=== PATIENT | male | born 1940 | race Caucasian/White ===

== ENCOUNTER 2022-05-30 18:50 | Inpatient (IN) ==
--- NOTE | 2022-05-30 20:17 | Emergency Department Note ---
Impression & Plan Closed hip fracture, Fall ADMIT ED Provider Note HPI: The patient is an 81-year-old gentleman who presents to the ED today with left hip pain after a fall. Patient has a history of stroke, he is currently on dual antiplatelet therapy, states that he was taking out the garbage earlier today and fell onto his left side. 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 On arrival here to the ED he is otherwise hemodynamically stable, he is able to answer simple questions with head nodding, he tells me that his left hip is the only focal area of pain. ROS: - Per HPI *Outpatient medications and allergy history reviewed. *Pertinent external medical records reviewed. PE: General: Alert HEENT: Normocephalic, trachea midline Eyes: Extraocular eye movement is intact, no scleral erythema Pulmonary: Clear to auscultation bilaterally, no wheezing Cardio: Regular rate and rhythm GI: Abdomen is soft to palpation : No suprapubic tenderness MSK: No evidence of trauma or malformation of the extremities, no edema, patient is not able to flex at the left hip secondary to pain Skin: No evidence of rash Neuro: Alert, no focal deficits Psychiatric: Cooperative engine monitor: (As interpreted by myself): - An order was placed for continuous cardiac monitoring - Patient was noted to be in sinus rhythm with a rate of 85 EKG: (As interpreted by myself): Rate: 81 Rhythm: Normal sinus rhythm Intervals: DE interval 206 ms, QRS 150 ms, QTc within normal range of [address] changes: No ST elevation Time: 2032 Interventions provided in ED: -IV morphine, IV fluid bolus Differential Diagnosis: Acute fracture, contusion, rib fractures, pneumothorax, hemothorax, intra-abdominal traumatic pathology, intracranial hem orrhage/traumatic injury, amongst other potential pathologies. Medical Decision Making: Patient presented to the emergency department after a fall at home today, his family later arrives to provide further history, they state he was taking out both the garbage and walking with the mail and he lost his balance and fell on his left hip. He had acute pain in his left hip. He had x-ray imaging done at a facility in [place] that showed a hip fracture and therefore they brought him to the ED for further assessment here. X-ray obtained and per my interpretation does show evidence of a left-sided femoral neck fracture. There is only mild displacement. Patient is unable to flex of the left hip. Patient does not have any other injuries, he does not have any other focal complaints of pain, he did not hit his head, therefore CT imaging was not obtained to evaluate for traumatic pathology within the head, thorax, or abdomen. His physical exam is reassuring in regards to these areas. He was given IV morphine for pain. Lab work otherwise is largely unremarkable, EKG shows normal sinus rhythm. I did discuss the patient's presentation with on-call orthopedics, Dr. Martinez, who is agreeable for consultation for orthopedics to provide recommendations regarding surgical care. Patient will be admitted to the hospitalist service given his medical history. [facility] hospitalist service was consulted and the patient was placed for admission in stable condition. Consultants: -Orthopedics, Dr. Martinez -Hospitalist, Dr. Coy Disposition discussion held by myself with: Patient, at the bedside, daughter at the Diagnosis: 1. Left-sided hip fracture status post mechanical fall 2. History of stroke, on dual antiplatelet therapy 3. Mechanical fall Disposition: Admission Wm Ortega DO Emergency Medicine Past Med/Surg History Social History Smoking Status: Never smoker Hx Alcohol Use: No Hx Substance Use: No Preferred Language: Slovenian Communication Ability: Impaired Public Information Coordinator Required: No Beliefs That Will Affect Care: None Current Living Situation: Spouse Other Information That Helps Us Care for You: No Feels Safe at Home: Yes Safety Concerns: Feels Safe At This Time Assistive Devices: Walker Allergies Allergies Allergy/AdvReac Type Severity Reaction Status Date / Time No Known Allergies Allergy Unverified 05/30/22 20:29 Home Meds Home Medications Medication Instructions Recorded Confirmed acetaminophen 325 mg tablet 650 mg PO QID PRN Pain 05/30/22 05/30/22 amlodipine 5 mg tablet 5 mg PO QAM 05/30/22 05/30/22 aspirin 81 mg tablet,delayed 81 mg PO QAM 05/30/22 05/30/22 release atorvastatin 80 mg tablet (Lipitor) 80 mg PO HS 05/30/22 05/30/22 budesonide-formoterol HFA 160 2 puff inhalation BID 05/30/22 05/30/22 mcg-4.5 mcg/actuation aerosol inhaler (Symbicort) clopidogrel 75 mg tablet 75 mg PO QAM 05/30/22 05/30/22 losartan 25 mg tablet 12.5 mg PO QAM 05/30/22 05/30/22 tamsulosin 0.4 mg capsule (Flomax) 0.4 mg PO HS 05/30/22 05/30/22 Results & Data (ED) Vital Signs Vital Signs - 24 hr 05/30/22 18:55 05/30/22 20:57 05/30/22 21:07 Temperature 36.8 C Temperature Source Temporal Artery Scan Pulse Rate 81 71 Pulse Rate [Finger] 79 Respiratory Rate 18 20 Respiratory Effort / Characteristics Non-Labored Spontaneous Respiratory Depth Normal Respiratory Pattern Regular Blood Pressure 131/78 Blood Pressure [Right Arm] 172/99 H Blood Pressure Mean 95 Blood Pressure Mean [Right Arm] 123 Pulse Oximetry 96 95 Oxygen Delivery Method Room Air Room Air Oxygen Flow Rate Sepsis Recent Fever Within 48 Hours No Sepsis New/Unexplained Change in Mental Status No Sepsis Action Taken by Nursing No Action Required Oxygen Flow Rate - Titration Pulse Oximetry Post Tiitration 05/30/22 21:27 05/30/22 22:30 Temperature Temperature Source Pulse Rate Pulse Rate [Finger] 82 Respiratory Rate 18 Respiratory Effort / Characteristics Respiratory Depth Respiratory Pattern Blood Pressure Blood Pressure [Right Arm] 172/85 H Blood Pressure Mean Blood Pressure Mean [Right Arm] 114 Pulse Oximetry 76 L 100 Oxygen Delivery Method Room Air Nasal Cannula Nasal Cannula Oxygen Flow Rate 0 4 Sepsis Recent Fever Within 48 Hours Sepsis New/Unexplained Change in Mental Status Sepsis Action Taken by Nursing Oxygen Flow Rate - Titration 4 Pulse Oximetry Post Tiitration 94 Laboratory Data 05/30/22 19:35 05/30/22 19:35 Lab Results 05/30/22 05/30/22 05/30/22 Range/Units 19:35 19:35 20:21 WBC 12.91 H (4.8-10.8) K/ul RBC 5.15 (4.70-6.10) M/uL Hgb 15.3 (14.0-18.0) g/dl Hct 46.7 (42.0-52.0) % MCV 90.7 (80.0-100.0) fL MCH 29.7 (25.0-34.0) pg MCHC 32.8 (32.0-36.0) g/dL RDW Std Deviation 48.9 H (36.4-46.3) fL RDW Coeff of Ejrald 14.6 H (11.5-14.5) % Plt Count 211 (130-400) K/uL MPV 9.8 (9.4-12.4) fL Immature Gran % (Auto) 0.6 % Neut % (Auto) 83.8 % Lymph % (Auto) 8.9 % Wirt % (Auto) 5.6 % Eos % (Auto) 0.9 % Baso % (Auto) 0.2 % Neut # (Auto) 10.82 H (1.40-6.50) K/uL Lymph # (Auto) 1.15 L (1.2-3.4) K/uL Wirt # (Auto) 0.72 H (0.11-0.59) K/uL Eos # (Auto) 0.12 (0-0.50) K/uL Baso # (Auto) 0.02 (0-0.2) K/uL Immature Gran # (Auto) 0.08 (0.01-0.20) K/uL PT (9.0-12.0) Seconds INR (0.9-1.1) Sodium 141 (136-145) mmol/L Potassium 3.8 (3.5-5.1) mmol/L Chloride 104 (98-107) mmol/L Carbon Dioxide 31 (21-32) mmol/L Anion Gap 6 (3-11) BUN 28 H (6-23) mg/dl Creatinine 1.00 (0.6-1.4) mg/dl Est Cr Clr Drug Dosing Not Reportable Est GFR ( Amer) 80.3 ml/min Est GFR (Non-Af Amer) 69.3 ml/min BUN/Creatinine Ratio 28.0 H (10-20) Glucose 154 H (70-99(Fasting)) mg/dl Calcium 8.8 (8.5-10.1) mg/dl Total Bilirubin 0.4 (0.2-1.0) mg/dl AST 22 (13-39) U/L ALT 14 (7-52) U/L Alkaline Phosphatase 53 (34-104) U/L Total Protein 7.7 (6.0-8.3) gm/dl Albumin 4.6 (3.4-5.0) gm/dl Globulin 3.1 (2.5-4.0) gm/dl Albumin/Globulin Ratio 1.5 (0.9-2) SARS-CoV-2, RNA, NAAT (NEGATIVE) Blood Type A Positive Antibody Screen NEGATIVE 05/30/22 05/30/22 Range/Units 20:24 20:35 WBC (4.8-10.8) K/ul RBC (4.70-6.10) M/uL Hgb (14.0-18.0) g/dl Hct (42.0-52.0) % MCV (80.0-100.0) fL MCH (25.0-34.0) pg MCHC (32.0-36.0) g/dL RDW Std Deviation (36.4-46.3) fL RDW Coeff of Jerald (11.5-14.5) % Plt Count (130-400) K/uL MPV (9.4-12.4) fL Immature Gran % (Auto) % Neut % (Auto) % Lymph % (Auto) % Wirt % (Auto) % Eos % (Auto) % Baso % (Auto) % Neut # (Auto) (1.40-6.50) K/uL Lymph # (Auto) (1.2-3.4) K/uL Wirt # (Auto) (0.11-0.59) K/uL Eos # (Auto) (0-0.50) K/uL Baso # (Auto) (0-0.2) K/uL Immature Gran # (Auto) (0.01-0.20) K/uL PT 10.8 (9.0-12.0) Seconds INR 1.0 (0.9-1.1) Sodium (136-145) mmol/L Potassium (3.5-5.1) mmol/L Chloride (98-107) mmol/L Carbon Dioxide (21-32) mmol/L Anion Gap (3-11) BUN (6-23) mg/dl Creatinine (0.6-1.4) mg/dl Est Cr Clr Drug Dosing Est GFR ( Amer) ml/min Est GFR (Non-Af Amer) ml/min BUN/Creatinine Ratio (10-20) Glucose (70-99(Fasting)) mg/dl Calcium (8.5-10.1) mg/dl Total Bilirubin (0.2-1.0) mg/dl AST (13-39) U/L ALT (7-52) U/L Alkaline Phosphatase (34-104) U/L Total Protein (6.0-8.3) gm/dl Albumin (3.4-5.0) gm/dl Globulin (2.5-4.0) gm/dl Albumin/Globulin Ratio (0.9-2) SARS-CoV-2, RNA, NAAT NEGATIVE (NEGATIVE) Blood Type Antibody Screen Administered Medications Morphine Sulfate (Morphine Sulfate 2 Mg/Ml Carp) 2 mg IV Q3H PRN PRN Reason: Moderate Pain (Scale 4, 5, 6) Stop: 06/13/22 22:47 Last Admin: 05/31/22 00:29 Dose: 2 mg Documented By: SONIA Discontinued Medications Sodium Chloride (Nss) 500 mls @ 999 mls/hr IV .Q31M ONE Stop: 05/30/22 21:26 Last Infusion: 05/30/22 22:03 Dose: 0 mls/hr Documented By: Admin: 05/30/22 21:13 Dose: 999 mls/hr Documented By: DEBBI Morphine Sulfate (Morphine Sulfate 4 Mg/Ml 1 Ml Carp\Vial) 4 mg IV NOW STA Stop: 05/30/22 20:37 Last Admin: 05/30/22 20:44 Dose: 4 mg Documented By: DEBBI Morphine Sulfate (Morphine Sulfate 4 Mg/Ml 1 Ml Carp\Vial) 4 mg IV NOW STA Stop: 05/30/22 21:10 Last Admin: 05/30/22 21:13 Dose: 4 mg Documented By: DEBBI Ondansetron HCl (Ondansetron Inj 2 Mg/Ml 2 Ml Vial) 4 mg IV NOW STA Stop: 05/30/22 20:37 Last Admin: 05/30/22 20:44 Dose: 4 mg Documented By: DEBBI Discharge Plan Visit Data Chief Complaint: Fall Stated Complaint: BROKEN HIP ED Provider: Wm Ortega Discharge Problem: Closed hip fracture, Fall Patient Disposition: Admitted As Inpatient Discharge Instructions Interventions: ED Discharge Assessment Last Done: 05/30/22 23:30
[2022-05-30] MEDS ORDERED: MoRPHine SULFATE 4 MG/ML 1 ML CARP\\VIAL IV STA ×2 (20:36→21:09)
[2022-05-30] MEDS ORDERED: ONDANSETRON INJ 2 MG/ML 2 ML VIAL IV STA (20:36)
[2022-05-30 20:38] LABS: Basophils # (auto) 0.02 K/uL (0-0.2); Basophils % (auto) 0.2 %; Eosinophils # (auto) 0.12 K/uL (0-0.50); Eosinophils % (auto) 0.9 %; Hematocrit (blood only) 46.7 % (42.0-52.0); Hemoglobin 15.3 g/dl (14.0-18.0); Immature Granulocytes # (auto) 0.08 K/uL (0.01-0.20); Immature Granulocytes % (auto) 0.6 %; Lymphocytes # (auto) 1.15 K/uL (1.2-3.4); Lymphocytes % (auto) 8.9 %; Mean Corpuscular Hemoglobin 29.7 pg (25.0-34.0); Mean Corpuscular Hgb Conc 32.8 g/dL (32.0-36.0); Mean Corpuscular Volume 90.7 fL (80.0-100.0); Mean Platelet Volume 9.8 fL (9.4-12.4); Monocytes # (auto) 0.72 K/uL (0.11-0.59); Monocytes % (auto) 5.6 %; Neutrophils # (auto) 10.82 K/uL (1.40-6.50); Neutrophils % (auto) 83.8 %; Platelet Count 211 K/uL (130-400); RDW Coefficient of Variation 14.6 % (11.5-14.5); RDW Standard Deviation 48.9 fL (36.4-46.3); Red Blood Count 5.15 M/uL (4.70-6.10); White Blood Count 12.91 K/ul (4.8-10.8)
[2022-05-30 20:49] LABS: Alanine Aminotransferase 14 U/L (7-52); Albumin Globulin Ratio 1.5 (0.9-2); Albumin Level 4.6 gm/dl (3.4-5.0); Alkaline Phosphatase 53 U/L (34-104); Anion Gap 6 (3-11); Aspartate Aminotransferase 22 U/L (13-39); Bilirubin,Total 0.4 mg/dl (0.2-1.0); Blood Urea Nitrogen 28 mg/dl (6-23); Calcium 8.8 mg/dl (8.5-10.1); Carbon Dioxide 31 mmol/L (21-32); Chloride 104 mmol/L (98-107); Est GFR (African American) 80.3 ml/min; Est GFR (Non-African American) 69.3 ml/min; Globulin 3.1 gm/dl (2.5-4.0); Glucose 154 mg/dl (70-99(Fasting)); Potassium 3.8 mmol/L (3.5-5.1); Sodium 141 mmol/L (136-145); Total Protein 7.7 gm/dl (6.0-8.3)
[2022-05-30] MEDS ORDERED: SODIUM CHLORIDE 0.9% 500 ML IV ONE (20:56)
[2022-05-30 21:12] LABS: Prothrombin Time 10.8 Seconds (9.0-12.0)
--- NOTE | 2022-05-30 22:46 | History & Physical Report ---
Date of Service May 30, 2022 Assessment & Plan (1) History of CVA (cerebrovascular accident): (2) Hypertension: (3) Hyperlipidemia: (4) COPD (chronic obstructive pulmonary disease): (5) Urinary tract infection: (6) History of balanitis: (7) Anal stricture: (8) Closed fracture of left hip: (9) Fall: (10) H/O carotid endarterectomy: (11) BPH w urinary obs/LUTS: (12) History of cardiac arrest: Plan Closed fracture of left hip status post mechanical fall- N.p.o. after midnight Geriatric hip fracture order set Acetaminophen 650 mg p.o. every 6 hours as needed for mild pain or temperature Morphine sulfate 2 mg IV every 4 hours as needed for moderate pain. Of note, patient had hypoxia with a 4 mg morphine dose while in the ED Dilaudid 0.25 mg IV every 4 hours as needed for severe pain NSS + KCl 20mEq at 80 mils per hour Consult orthopedic surgery. Family request [facility] orthopedic surgery Cardiac arrest status post bilateral CEA surgery in 2015/hypertension- Check an echocardiogram Attempt to get records from [place] From family history, it sounds the patient developed some type of postobstructive process associated with CEA, and then developed a cardiopulmonary arrest Hold aspirin, clopidogrel Continue amlodipine and losartan with hold parameters Hyperglycemia- No history of diabetes as a diagnosis Glucose was 154 on admission laboratories Checking hemoglobin A1c Placed on Accu-Cheks with NovoLog SSI COPD- Continue Symbicort Hyperlipidemia- Continue atorvastatin BPH with LUTS- Continue tamsulosin History of UTI/balanitis- Patient was admitted to the emergency department at [facility] for 3 days in February 2022. His reports that he sties developed a rash on his penis, and she reports combination of 2 creams on this on a daily basis We will attempt to get the records from [place], and patient's will bring in the creams so we can see if he still needs them History of Present Illness Chief Complaint: The patient developed acute left hip pain after a fall when he was outside picking up the mail. Primary Care Provider: Heath Delgadillo DO The patient is a 81-year-old male with a past medical history including CVA x2, cardiac arrest post bilateral CEA in 2016, hypertension, hyperlipidemia, COPD, BPH with LUTS, urinary tract infection, balanitis and anal stricture. 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 Emergency department work-up included x-ray of pelvis and hips, which showed a closed left hip fracture. Patient developed a pulse ox of 79% on room air after receiving 4 mg of morphine IV, and improved oxygenation on 2 L nasal cannula to 94%. Significant laboratories: WBC 12.91, hemoglobin 15.3, hematocrit 46.7, glucose 154. Patient was COVID-19 negative Allergies Allergy/AdvReac Type Severity Reaction Status Date / Time No Known Allergies Allergy Unverified 05/30/22 20:29 Home Medications Medication Instructions Recorded Confirmed Type acetaminophen 325 mg tablet 650 mg PO QID PRN Pain 05/30/22 05/30/22 History amlodipine 5 mg tablet 5 mg PO QAM 05/30/22 05/30/22 History aspirin 81 mg tablet,delayed 81 mg PO QAM 05/30/22 05/30/22 History release atorvastatin 80 mg tablet (Lipitor) 80 mg PO HS 05/30/22 05/30/22 History budesonide-formoterol HFA 160 2 puff inhalation BID 05/30/22 05/30/22 History mcg-4.5 mcg/actuation aerosol inhaler (Symbicort) clopidogrel 75 mg tablet 75 mg PO QAM 05/30/22 05/30/22 History losartan 25 mg tablet 12.5 mg PO QAM 05/30/22 05/30/22 History tamsulosin 0.4 mg capsule (Flomax) 0.4 mg PO HS 05/30/22 05/30/22 History Past Med/Surg History Medical History (Updated 05/31/22 @ 04:06 by Segun Torres MD) Anal stricture Balanitis BPH w urinary obs/LUTS Carotid artery disease COPD (chronic obstructive pulmonary disease) History of cardiac arrest History of CVA (cerebrovascular accident) Hyperlipidemia Hypertension Urinary tract infection Surgical History (Updated 05/31/22 @ 03:56 by Segun Torres MD) H/O carotid endarterectomy Social History Smoking Status: Never smoker Hx Alcohol Use: No Hx Substance Use: No Preferred Language: Thai Communication Ability: Impaired 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 Beliefs That Will Affect Care: None Current Living Situation: Spouse Other Information That Helps Us Care for You: No Feels Safe at Home: Yes Safety Concerns: Feels Safe At This Time Assistive Devices: Walker Review of Systems Review of Systems: The patient denies chest pain, palpitations, shortness of breath, dyspnea on exertion, cough, lower extremity swelling, sore throat, fevers, chills, sweats, weight change, fatigue, nausea, vomiting, diarrhea , constipation, abdominal pain, pelvic pain, blood in urine or stool, dysuria, urinary frequency or urgency, lightheadedness, dizziness, headache, loss of consciousness, rash, abnormal bruising or bleedi ng, focal or generalized weakness, numbness or tingling in arms, generalized arthralgias or myalgias, back or neck pain, or night sweats. The review of systems is otherwise negative other than for that already noted above, and at least 10 systems have been reviewed. Physical Exam Physical Exam: The patient is awake, alert and oriented 3, well developed and well nourished, normocephalic and atraumatic, lying in bed and in no acute distress. HEENT--PERRL, EOMI, mucous membranes and oropharynx dry. Neck--supple. No JVD. No bruits. Thyroid normal, trachea midline, no adenopathy. Heart--normal S1 and S2. No murmurs, rubs or gallops. Lungs--clear bilaterally, no respiratory distress, no accessory muscle use. Abdomen--normal bowel sounds and soft. Nontender. Nondistended, no hernias or masses, no organomegaly. Extremities--no cyanosis or clubbing. No edema. There are good distal pulses b/l. Dermatologic--normal skin turgor, normal color, no abnormal lymph nodes, no rash. Neurologic--cranial nerves II through XII grossly intact. Rheumatologic--limited exam due to left hip fracture Psychiatric--normal affect. Results & Data Results & Data ([facility]) Vital Signs (Past 12 Hours) Vital Signs Temp Pulse Pulse Resp BP BP Pulse Ox 05/30/22 21:27 76 L 05/30/22 21:07 71 05/30/22 20:57 79 20 172/99 H 95 05/30/22 18:55 36.8 C 81 18 131/78 96 O2 Del Method O2 Flow Rate 05/30/22 21:27 Room Air, Nasal Cannula 0 05/30/22 21:07 05/30/22 20:57 Room Air 05/30/22 18:55 Room Air Laboratory Results Laboratory Results WBC 12.91 K/ul (4.8-10.8) H 05/30/22 19:35 RBC 5.15 M/uL (4.70-6.10) 05/30/22 19:35 Hgb 15.3 g/dl (14.0-18.0) 05/30/22 19:35 Hct 46.7 % (42.0-52.0) 05/30/22 19:35 MCV 90.7 fL (80.0-100.0) 05/30/22 19:35 MCH 29.7 pg (25.0-34.0) 05/30/22 19:35 MCHC 32.8 g/dL (32.0-36.0) 05/30/22 19:35 RDW Std Deviation 48.9 fL (36.4-46.3) H 05/30/22 19:35 RDW Coeff of Jerald 14.6 % (11.5-14.5) H 05/30/22 19:35 Plt Count 211 K/uL (130-400) 05/30/22 19:35 MPV 9.8 fL (9.4-12.4) 05/30/22 19:35 Immature Gran % (Auto) 0.6 % 05/30/22 19:35 Neut % (Auto) 83.8 % 05/30/22 19:35 Lymph % (Auto) 8.9 % 05/30/22 19:35 [place] % (Auto) 5.6 % 05/30/22 19:35 Eos % (Auto) 0.9 % 05/30/22 19:35 Baso % (Auto) 0.2 % 05/30/22 19:35 Neut # (Auto) 10.82 K/uL (1.40-6.50) H 05/30/22 19:35 Lymph # (Auto) 1.15 K/uL (1.2-3.4) L 05/30/22 19:35 [place] # (Auto) 0.72 K/uL (0.11-0.59) H 05/30/22 19:35 Eos # (Auto) 0.12 K/uL (0-0.50) 05/30/22 19:35 Baso # (Auto) 0.02 K/uL (0-0.2) 05/30/22 19:35 Immature Gran # (Auto) 0.08 K/uL (0.01-0.20) 05/30/22 19:35 PT 10.8 Seconds (9.0-12.0) 05/30/22 20:24 INR 1.0 (0.9-1.1) 05/30/22 20:24 Sodium 141 mmol/L (136-145) 05/30/22 19:35 Potassium 3.8 mmol/L (3.5-5.1) 05/30/22 19:35 Chloride 104 mmol/L (98-107) 05/30/22 19:35 Carbon Dioxide 31 mmol/L (21-32) 05/30/22 19:35 Anion Gap 6 (3-11) 05/30/22 19:35 BUN 28 mg/dl (6-23) H 05/30/22 19:35 Creatinine 1.00 mg/dl (0.6-1.4) 05/30/22 19:35 Est Cr Clr Drug Dosing Not Reportable 05/30/22 19:35 Est GFR ( Amer) 80.3 ml/min 05/30/22 19:35 Est GFR (Non-Af Amer) 69.3 ml/min 05/30/22 19:35 BUN/Creatinine Ratio 28.0 (10-20) H 05/30/22 19:35 Glucose 154 mg/dl (70-99(Fasting)) H 05/30/22 19:35 Calcium 8.8 mg/dl (8.5-10.1) 05/30/22 19:35 Total Bilirubin 0.4 mg/dl (0.2-1.0) 05/30/22 19:35 AST 22 U/L (13-39) 05/30/22 19:35 ALT 14 U/L (7-52) 05/30/22 19:35 Alkaline Phosphatase 53 U/L (34-104) 05/30/22 19:35 Total Protein 7.7 gm/dl (6.0-8.3) 05/30/22 19:35 Albumin 4.6 gm/dl (3.4-5.0) 05/30/22 19:35 Globulin 3.1 gm/dl (2.5-4.0) 05/30/22 19:35 Albumin/Globulin Ratio 1.5 (0.9-2) 05/30/22 19:35 SARS-CoV-2, RNA, NAAT NEGATIVE (NEGATIVE) 05/30/22 20:35 Blood Type A Positive 05/30/22 20:21 Antibody Screen NEGATIVE 05/30/22 20:21 Code Status & VTE Plan Code Status Full code VTE Prophylaxis Plan VTE Prophylaxis will be ordered: Yes PG Care Time/CCT Total # of Minutes Spent Total Time Spent with Patient: Total time spent is greater than 50% in coordination of care (as documented) at patient's floor/unit and/or counseling patient: Coding Level of Care Code 57499 INT INP/OBS CARE 375MIN Diagnoses History of CVA (cerebrovascular accident) Z86.73 Hypertension I10 Hyperlipidemia E78.5 COPD (chronic obstructive pulmonary disease) J44.9 Urinary tract infection N39.0 History of balanitis Z87.438 Anal stricture K62.4 Closed fracture of left hip S72.002A Fall W19.XXXA H/O carotid endarterectomy Z98.890 BPH w urinary obs/LUTS N40.1; N13.8 History of cardiac arrest Z86.74
[2022-05-31] MEDS ORDERED: bisacodyL 10 MG SUPP PR PRN (00:01)
[2022-05-31] MEDS ORDERED: GLUCAGON FOR INJ 1 MG VIAL SQ PRN (00:01)
[2022-05-31] MEDS ORDERED: ACETAMINOPHEN 325 MG TAB PO PRN (00:01)
[2022-05-31] MEDS ORDERED: CARBOHYDRATES FOR HYPOGLYCEMIA PO PRN (00:01)
[2022-05-31] MEDS ORDERED: DEXTROSE 50% 50 ML SYRINGE IV PRN (00:01)
[2022-05-31] MEDS ORDERED: GLUCOSE 40% GEL 15 GM TUBE PO PRN (00:01)
[2022-05-31] MEDS ORDERED: ONDANSETRON INJ 2 MG/ML 2 ML VIAL IV PRN ×2 (00:01→11:31)
[2022-05-31] MEDS ORDERED: GLUCOSE 10 TAB/TUBE PO PRN (00:01)
[2022-05-31] MEDS ORDERED: NALOXONE HCL 0.4 MG/1 ML VIAL/CARP IV PRN (00:01)
[2022-05-31] MEDS ORDERED: MAGNESIUM HYDROXIDE SUSP 30 ML UDC PO PRN (00:01)
[2022-05-31] MEDS: MoRPHine SULFATE 2 MG/ML CARP IV PRN ×4 (00:29→21:30)
[2022-05-31] MEDS: NSS + 20MEQ KCL 20 MEQ/1,000 ML BAG IV SCH ×2 (01:46→19:00)
[2022-05-31] MEDS ORDERED: TRANEXAMIC ACID / 0.7% NACL 1,000 MG/100 ML BAG IV SCH ×2 (06:00→06:30)
--- NOTE | 2022-05-31 07:05 | XRay Report ---
XR hip MARY 2v w pelvis CLINICAL HISTORY: Left hip pain following fall. COMPARISON STUDY: No previous studies for comparison. FINDINGS: Sacroiliac joints and symphysis pubis are intact. Note is made of an acute transcervical le ft femoral neck fracture. Fracture is essentially nondisplaced. No additional fractures are identifie d. There is moderate bilateral hip osteoarthritis. IMPRESSION: 1. Acute transcervical left femoral neck fracture. Fracture essentially nondisplaced. 2. Moderate bilateral hip osteoarthritis. ACT 112: Negative or not required by law. Electronically signed by: Joaquín Manley M.D. 05/31/2022 7:03 AM
[2022-05-31 07:08] LABS: Basophils # (auto) 0.04 K/uL (0-0.2); Basophils % (auto) 0.5 %; Eosinophils # (auto) 0.16 K/uL (0-0.50); Eosinophils % (auto) 1.8 %; Hematocrit (blood only) 46.1 % (42.0-52.0); Hemoglobin 14.7 g/dl (14.0-18.0); Immature Granulocytes # (auto) 0.04 K/uL (0.01-0.20); Immature Granulocytes % (auto) 0.5 %; Lymphocytes # (auto) 1.29 K/uL (1.2-3.4); Lymphocytes % (auto) 14.8 %; Mean Corpuscular Hemoglobin 29.2 pg (25.0-34.0); Mean Corpuscular Hgb Conc 31.9 g/dL (32.0-36.0); Mean Corpuscular Volume 91.5 fL (80.0-100.0); Mean Platelet Volume 9.6 fL (9.4-12.4); Monocytes # (auto) 0.55 K/uL (0.11-0.59); Monocytes % (auto) 6.3 %; Neutrophils # (auto) 6.61 K/uL (1.40-6.50); Neutrophils % (auto) 76.1 %; Platelet Count 193 K/uL (130-400); RDW Coefficient of Variation 14.6 % (11.5-14.5); RDW Standard Deviation 49.1 fL (36.4-46.3); Red Blood Count 5.04 M/uL (4.70-6.10); White Blood Count 8.69 K/ul (4.8-10.8)
[2022-05-31 07:36] LABS: Partial Thromboplastin Ratio 1.1; Partial Thromboplastin Time 31.5 Seconds (21.0-31.0); Prothrombin Time 10.9 Seconds (9.0-12.0)
--- NOTE | 2022-05-31 07:44 | Hospitalist Progress Note ---
Date of Service May 31, 2022 Assessment & Plan (1) Closed fracture of left hip: Plan: Presents after a mechanical fall, has focal pain, Acetaminophen 650 mg p.o. every 6 hours as needed for mild pain or temperature Morphine sulfate 2 mg IV every 4 hours as needed for moderate pain. Of note, patient had hypoxia with a 4 mg morphine dose while in the ED Dilaudid 0.25 mg IV every 4 hours as needed for severe pain NSS + KCl 20mEq at 80 mils per hour Consult orthopedic surgery. Family request [facility] orthopedic surgery patient taken to the OR on 05/31/2022 with Yadira Foster (2) History of cardiac arrest: Plan: Cardiac arrest status post bilateral CEA surgery in 2016/hypertension- echocardiogram is without changes intact EF no regional wall motion abnormalities no significant valvular heart disease Hold aspirin, clopidogrel Continue amlodipine and losartan with hold parameters (3) COPD (chronic obstructive pulmonary disease): Plan: Chronic and stable continue Symbicort (4) History of CVA (cerebrovascular accident): Plan: Previous on 2 antiplatelet therapy these will be held. Risk reduction hypertension control and dyslipidemic treatment (5) Urinary tract infection: Plan: History of UTI/balanitis- Patient was admitted to the emergency department at [facility] for 3 days in February 2022. His reports that he since developed a rash on his penis, and she reports combination of 2 creams on this on a daily basis patient says this is in good control and almost resolved (6) BPH w urinary obs/LUTS: Admission and Anticipated Discharge Date Admission Date: May 30, 2022 Subjective pt was seen pre operatively, he has no anginal or HF symptoms, and support the fact that he will have surgical repair 05/31/22 Physical Exam Physical Exam: cardiac exam is regular, no jvd lungs are clear abdomen is soft and non tender left leg with intact distal pulses and sensation Results & Data Results & Data ([facility]) Vital Signs (Past 12 Hours) Vital Signs Temp Pulse Pulse Resp BP Pulse Ox O2 Del Method 05/31/22 03:39 97.9 F 82 16 148/79 H 96 Nasal Cannula 05/31/22 01:05 80 05/31/22 00:48 Nasal Cannula 05/31/22 00:04 97.9 F 85 16 164/84 H 97 Nasal Cannula 05/30/22 23:30 Nasal Cannula 03/02/23 22:30 82 18 172/85 H 100 Nasal Cannula 05/30/22 21:27 76 L Room Air, Nasal Cannula 05/30/22 21:07 71 05/30/22 20:57 79 20 172/99 H 95 Room Air O2 Flow Rate 05/31/22 03:39 2 05/31/22 01:05 05/31/22 00:48 2 05/31/22 00:04 2 05/30/22 23:30 4 05/30/22 22:30 4 05/30/22 21:27 0 05/30/22 21:07 05/30/22 20:57 Laboratory Results Reviewed CBC Reviewed chemistry panel Reviewed coagulation studies Reviewed hemoglobin A1c Preoperative echocardiogram shows normal LV function and size PG Care Time/CCT Total # of Minutes Spent Total Time Spent with Patient: Total time spent is greater than 50% in coordination of care (as documented) at patient's floor/unit and/or counseling patient: Coding Level of Care Code 90691 SUB INP/OBS CARE 2/35MIN Diagnoses Closed fracture of left hip S72.002A History of cardiac arrest Z86.74 COPD (chronic obstructive pulmonary disease) J44.9 History of CVA (cerebrovascular accident) Z86.73 Urinary tract infection N39.0 BPH w urinary obs/LUTS N40.1; N13.8
[2022-05-31 07:52] LABS: Albumin Globulin Ratio 1.4 (0.9-2); Albumin Level 4.1 gm/dl (3.4-5.0); BUN Creatinine Ratio 27.2 (10-20); Bilirubin,Total 0.5 mg/dl (0.2-1.0); Calcium 8.6 mg/dl (8.5-10.1); Creatinine Clr Calc Pharmacy 81.6 ml/min; Est GFR (African American) 95.3 ml/min; Est GFR (Non-African American) 82.2 ml/min; Globulin 2.9 gm/dl (2.5-4.0); Magnesium 2.2 mg/dl (1.7-2.4)
[2022-05-31] MEDS: INSULIN ASPART PER UNIT SC SCH ×4 (08:10→21:22)
[2022-05-31] MEDS: FLUTICASONE/VILANTEROL 200/25MCG 14 PUFFS/INHALER INH SCH (08:27)
[2022-05-31] MEDS ORDERED: amLODIPine BESYLATE 5 MG TAB PO SCH (09:00)
[2022-05-31] MEDS ORDERED: LOSARTAN POTASSIUM 25 MG TAB PO SCH (09:00)
--- NOTE | 2022-05-31 09:21 | Orthopedic Consultation ---
Date of Service May 31, 2022 Assessment & Plan (1) Closed fracture of left hip: NPO. We will plan on left hip hemiarthroplasty today with Dr. Foster. Procedure explained to the patient including risks, benefits, alternatives to surgery. Consent obtained. I also called his and discussed this with her and she wants to proceed with hip surgery as well. History of Present Illness Reason for Consultation: . Requesting Physician: . Attending Physician: Anmol Yuen MD . Elie is a 81 year old patient admitted last night with a left hip fracture. He has a h/o cva, aphasia, cardiac arrest, copd, among other problems listed in his H & P. He states he fell while walking yesterday and injured his left hip. Denies any pain prior to fall. No other complaints. Allergies Allergy/AdvReac Type Severity Reaction Status Date / Time No Known Allergies Allergy Unverified 05/30/22 20:29 Home Medications Medication Instructions Recorded Confirmed Type acetaminophen 325 mg tablet 650 mg PO QID PRN Pain 05/30/22 05/30/22 History amlodipine 5 mg tablet 5 mg PO QAM 05/30/22 05/30/22 History aspirin 81 mg tablet,delayed 81 mg PO QAM 05/30/22 05/30/22 History release atorvastatin 80 mg tablet (Lipitor) 80 mg PO HS 05/30/22 05/30/22 History budesonide-formoterol HFA 160 2 puff inhalation BID 05/30/22 05/30/22 History mcg-4.5 mcg/actuation aerosol inhaler (Symbicort) clopidogrel 75 mg tablet 75 mg PO QAM 05/30/22 05/30/22 History losartan 25 mg tablet 12.5 mg PO QAM 05/30/22 05/30/22 History tamsulosin 0.4 mg capsule (Flomax) 0.4 mg PO HS 05/30/22 05/30/22 History Past Med/Surg History Medical History Anal stricture Balanitis BPH w urinary obs/LUTS Carotid artery disease COPD (chronic obstructive pulmonary disease) History of cardiac arrest History of CVA (cerebrovascular accident) Hyperlipidemia Hypertension Urinary tract infection Surgical History H/O carotid endarterectomy Social History Smoking Status: Never smoker Hx Alcohol Use: No Hx Substance Use: No Preferred Language: Egyptian Communication Ability: Impaired Cro Required: No Beliefs That Will Affect Care: None Current Living Situation: Spouse Other Information That Helps Us Care for You: No Feels Safe at Home: Yes Safety Concerns: Feels Safe At This Time Assistive Devices: Walker Review of Systems All systems reviewed & are unremarkable except as noted in HPI & below. Physical Exam . Alert, NAD. Left leg: slightly externally rotated. He can dorsiflex and plantar flex. NVI. Hip pain with minimal movement. Results & Data Results & Data Laboratory Results . Diagnostic Findings . xrays shows a displaced left femoral neck fracture PG Care Time/CCT Total # of Minutes Spent Total Time Spent with Patient: Total time spent is greater than 50% in coordination of care (as documented) at patient's floor/unit and/or counseling patient: Coding Level of Care Code 66748 IN/OBS CONSULT LVL 5,80M Diagnoses Closed fracture of left hip S72.002A
[2022-05-31 09:57] LABS: Estimated Average Glucose 146 mg/dl; Hemoglobin A1C 6.7 % (4.5-5.6)
--- NOTE | 2022-05-31 10:09 | Anesthesiology Consultation ---
Date of Service May 31, 2022 Assessment & Plan (1) Encounter for pre-operative examination: Chart Review Chart Review: Acceptable Risk for Surgery and Patient NOT seen in Pre Admission Testing echo completed. ok to proceed. see report for full details Consults Requested none History Surgery Operation Date: 05/31/22 08:00 Proposed Procedures p Left Hip Hemiarthroplasty - Richard Foster MD Height/Weight Height: 5 ft 10 in Weight: 99.3 kg Allergies Allergy/AdvReac Type Severity Reaction Status Date / Time No Known Allergies Allergy Unverified 05/30/22 20:29 Medications Home Medications Medication Instructions Recorded Confirmed Last Taken acetaminophen 325 mg tablet 650 mg PO QID PRN Pain 05/30/22 05/30/22 05/30/22 amlodipine 5 mg tablet 5 mg PO QAM 05/30/22 05/30/22 05/30/22 aspirin 81 mg tablet,delayed 81 mg PO QAM 05/30/22 05/30/22 05/30/22 release atorvastatin 80 mg tablet (Lipitor) 80 mg PO HS 05/30/22 05/30/22 05/29/22 budesonide-formoterol HFA 160 2 puff inhalation BID 05/30/22 05/30/22 05/30/22 mcg-4.5 mcg/actuation aerosol inhaler (Symbicort) clopidogrel 75 mg tablet 75 mg PO QAM 05/30/22 05/30/22 05/30/22 losartan 25 mg tablet 12.5 mg PO QAM 05/30/22 05/30/22 05/30/22 tamsulosin 0.4 mg capsule (Flomax) 0.4 mg PO HS 05/30/22 05/30/22 05/29/22 Active Medications Generic Name Dose Route Start Last Admin Trade Name Freq PRN Reason Stop Dose Admin Fluticasone/Vilanterol 1 puffs 05/31/22 09:00 05/31/22 08:27 Fluticasone/Vilanterol 200/25mcg 14 Puffs/Inhaler INH 06/30/22 08:59 1 puffs DAILY RUBEN Administration Potassium Chloride/Sodium Chloride 20 meq in 1,000 mls @ 60 mls/hr 05/31/22 00:30 05/31/22 01:46 Normal Saline W/20 Meq Kcl IV 06/30/22 00:00 60 mls/hr .[id number] RUBEN Administration Insulin Aspart 0 units 05/31/22 07:30 05/31/22 08:10 Insulin Aspart Per Unit SC 06/30/22 07:29 Not Given ACHS RUBEN Morphine Sulfate 2 mg 05/30/22 22:48 05/31/22 09:21 Morphine Sulfate 2 Mg/Ml Carp IV 06/13/22 22:47 2 mg Q3H PRN Administration Moderate Pain (Scale 4, 5, 6) NPO Date Last Intake of Fluids: 05/30/22 Last Intake of Fluids Comment: NPO since midnight Date Last Intake of Solids: 05/30/22 Past Medical History Medical History Anal stricture Balanitis BPH w urinary obs/LUTS Carotid artery disease COPD (chronic obstructive pulmonary disease) History of cardiac arrest History of CVA (cerebrovascular accident) Hyperlipidemia Hypertension Urinary tract infection Past Surgical History Surgical History H/O carotid endarterectomy Social History Smoking Status: Never smoker Hx Alcohol Use: No Hx Substance Use: No Physical Exam Vital Signs Last Vital Signs Temp 36.6 C 05/31/22 10:51 Pulse 79 05/31/22 10:51 Resp 20 05/31/22 10:51 BP 143/75 H 05/31/22 10:51 Pulse Ox 94 05/31/22 10:51 O2 Del Method Nasal Cannula 05/31/22 10:51 O2 Flow Rate 2 05/31/22 10:51 Testing Laboratory Results 05/31/22 06:22 05/31/22 06:22 PT 10.9 Seconds (9.0-12.0) 05/31/22 06:22 INR 1.0 (0.9-1.1) 05/31/22 06:22 APTT 31.5 Seconds (21.0-31.0) H 05/31/22 06:22 Hemoglobin A1c 6.7 % (4.5-5.6) H 05/31/22 06:22 Blood Type A Positive 05/30/22 20:21 Antibody Screen NEGATIVE 05/30/22 20:21 05/31/22 05/31/22 07:40 04:37 POC Glucose 110 H 147 H Electrocardiogram Date: 05/30/22 Findings: + NSR @ (81) RBBB
[2022-05-31] MEDS ORDERED: ONDANSETRON INJ 2 MG/ML 2 ML VIAL ONE (11:02)
[2022-05-31] MEDS ORDERED: PROPOFOL IV EMULSION 10 MG/ML 20 ML VIAL IV ONE (11:02)
[2022-05-31] MEDS ORDERED: LIDOCAINE 2% MPF LOCAL 5 ML VIAL INFIL ONE (11:02)
[2022-05-31] MEDS ORDERED: ROCURONIUM BROMIDE 10 MG/ML 5 ML VIAL IV ONE (11:02)
[2022-05-31] MEDS ORDERED: fentaNYL citrate 100 MCG/2 ML VIAL ONE (11:03)
[2022-05-31] MEDS ORDERED: ceFAZolin 2000MG 2,000 MG/15 ML SYR IV ONE (11:15)
--- NOTE | 2022-05-31 11:16 | XCELERA ---
[id number] \\[id number]
[2022-05-31] MEDS ORDERED: TRANEXAMIC ACID / 0.7% NACL 1,000 MG/100 ML BAG IV STA (11:21)
[2022-05-31] MEDS ORDERED: TRANEXAMIC ACID / 0.7% NACL 1000MG/100ML BAG IV ONE (11:23)
[2022-05-31] MEDS ORDERED: BUPIVACAINE/EPINEPHRINE 0.25% 1:200,000 30 ML VIAL ONE (11:26)
[2022-05-31] MEDS ORDERED: ePHEDrine sulfate 50 MG/ML AMP IV PRN (11:31)
[2022-05-31] MEDS ORDERED: ATROPINE SULFATE 0.1 MG/ML 10ML SYR IV PRN (11:31)
--- NOTE | 2022-05-31 11:43 | Electrocardiogram Report ---
Test Reason : Blood Pressure : / mmHG Vent. Rate : 081 BPM Atrial Rate : 081 BPM P-R Int : 206 ms QRS Dur : 150 ms QT Int : 410 ms P-R-T Axes : 071 033 043 degrees QTc Int : 476 ms Normal sinus rhythm Right bundle branch block Abnormal ECG No previous ECGs available Confirmed by Robert Guo ([id number]) on 05/31/2022 11:42:57 AM Referred By: REFERRED SELF Confirmed By:Robert Guo
[2022-05-31] MEDS ORDERED: ESMOLOL HCL INJ 10 MG/ML 10ML VIAL IV ONE (12:45)
[2022-05-31] MEDS ORDERED: SUGAMMADEX SODIUM 200 MG/2 ML VIAL IV ONE (13:49)
--- NOTE | 2022-05-31 14:05 | Operative Report ---
PG Post Operative Report Pre & Post Diagnosis Operation Date: 05/31/22 08:00 Pre-Op Diagnosis: Left displaced femoral neck fracture. Post-Op Diagnosis: Left displaced femoral neck fracture. I identified the patient and participated in the time-out.: Yes Procedure Operation Date: 05/31/22 08:00 Actual Procedures p Left Hip cemented hemiarthroplasty(Left) - Richard Foster MD Surgeon Richard Foster MD Lumber Racker Gonzalo Flannery PA-C Estimated Blood Loss 150 Findings Consistent with Post-Op Diagnosis Specimens Left femoral head sent for pathology Anesthesia Type General Complications none Disposition Accompanied Patient To Recovery: No Indications Patient is an 81-year-old gent with multiple medical comorbidities who sustained a fall. He had cute onset of pain was unable to ambulate. Brought to emergency room where x-rays were displaced femoral neck fracture. Patient was medically optimized by the hospitalist service and indicated for surgical management. No pre-existing hip problems. No pre-existing hip pain. Description of Procedure Operative implants consisted of: 1. Harjeet size 11 LD fracture fracture stem with a 9 mm centralizer. 2. +7/28 mm metal articular ball. 3. 53 mm bipolar shell and liner. 4. Small cement restrictor. The patient was taken the operating, identified, placed on the operating table supine position protectors were properly padded. IV antibiotics tried by anesthesia team. A general anesthetic was implemented. Patient also got 1 g of tranexamic acid. He was then placed in the right lateral decubitus position. An axillary roll was placed. Stulberg hip positioner was used for positioning. Left hip was then scrubbed with Hibiclens, prepped with ChloraPrep and draped in usual sterile fashion. A posterolateral approach to the left hip was then performed through a curvilinear incision centered over the greater trochanter. Sharp dissection was carried through subcutaneous tissue down to the IT band gluteal fascia the IT band gluteal fascia incised longitudinally in line with skin incision. The underlying greater bursa was excised. The piriformis and external rotators were tagged and taken off the posterior aspect hip joint capsule. Great care was taken throughout the procedure protect the sciatic nerve at all times. A posterior capsulotomy was then performed leaving a 2 flaps for later repair. Hip was internally rotated. A femoral neck osteotomy cut was made just at the base of the fracture site which was about 10 mm at most above the lesser trochanter. Femoral neck and femoral head were then removed. I sized the acetabular to a size 53. Attention drawn the femur. The proximal femur was entered with a cookie cutter followed by canal finder and lateralizing reamer. Then broached beginning size 10 and progressing up to 12. The 12 was quite tight. We elect to place a size 11 implant. We trialed the hip and the +7 articular ball seem to recreate leg lengths and tension appropriately. It was fully stable. We elect to place these implants. All trial implants were removed. A cement restrictor was placed. Double batch Palacos G cement was mixed. The cement was then injected in the canal. A size 11 LDF X fracture stem was then placed. A +7 metal articular ball with a 53 bipolar shell and liner were placed after the cement hardened. The hip was located once again found to be stable. Attention drawn toward closing. The wound was irrigated scope sounds of pulsatile lavage solution. We did inject locally with 50 cc of half percent Marcaine with epinephrine. The poste rior capsule was then repaired with #2 Tycron suture. The external rotators were then reattached to the posterior active aspect of the hip abductors with #2 Tycron suture. The IT band gluteal fascia then closed with #1 PDS suture running fashion for subcutaneous tissues then closed with 2 layers the deep layer #1 Vicryl suture and subcutaneous tissue with 2-0 Dexon suture in a buried interrupted fashion. Skin was closed with skin andrew. Leg was then cleaned and dried a sterile dressing with Xeroform, 4 x 4's, ABD pad, foam tape was applied. The patient then brought out of general anesthesia and transferred to the recovery room in stable condition. The patient tolerated the procedure well and there were no complications. Gonzalo Flannery, my physician resident care assistant, was present for the entire procedure. His assistance was essential and required for appropriate patient positioning, prepping and draping, surgical exposure, performing the technical details of the operation, placement the implants, closure of the wound, and placement of the sterile bandage. I attest to the content of the Intraoperative Record and any orders documented therein. Any exceptions are noted below.
[2022-05-31] MEDS ORDERED: COUGH DROP (SUGAR FREE) LOZ 24 LOZ/1 BOX BUCCAL PRN (14:24)
[2022-05-31] MEDS: fentaNYL citrate 100 MCG/2 ML VIAL IV PRN ×3 (14:38→15:50)
--- NOTE | 2022-05-31 15:24 | XRay Report ---
XR hip LT min 2V CLINICAL HISTORY: Post-Operative implant position TECHNIQUE: 2 views of the left hip were obtained. Comparison: Comparison is made to bilateral hip radiograph 05/30/2022 FINDINGS: Patient is status post total hip arthroplasty with expected postsurgical changes including soft tissu e swelling and subcutaneous emphysema. IMPRESSION: Expected postoperative appearance status post placement of total hip arthroplasty. ACT 112: Negative or not required by law. Electronically signed by: Jayy Bella M.D. 05/31/2022 3:23 PM
--- NOTE | 2022-05-31 15:38 | Anesthesiology Progress Note ---
Date of Service May 31, 2022 Anesthesia Post Procedure Vital Signs Vital Signs: Temp Pulse Pulse Pulse Resp BP BP 05/31/22 14:40 103 H 12 173/106 H 05/31/22 14:30 102 H 20 189/97 H 05/31/22 15:29 100 H 12 174/85 H 05/31/22 15:20 99 H 12 173/97 H 05/31/22 15:10 101 H 12 169/85 H 05/31/22 15:00 98 H 12 180/97 H 05/31/22 14:50 97 H 20 172/101 H 05/31/22 14:20 102 H 20 186/102 H 05/31/22 14:14 36.2 C L 88 16 128/83 05/31/22 08:30 72 05/31/22 10:51 36.6 C 79 20 143/75 H 05/31/22 08:35 36.7 C 74 18 126/77 05/31/22 03:39 36.6 C 82 16 05/31/22 01:05 80 05/31/22 00:48 05/31/22 00:04 36.6 C 85 16 05/30/22 23:30 05/30/22 22:30 82 18 05/30/22 21:27 05/30/22 21:07 71 05/30/22 20:57 79 20 05/30/22 18:55 36.8 C 81 18 131/78 BP Pulse Ox O2 Del Method O2 Flow Rate 05/31/22 14:40 99 Oxymask 2 05/31/22 14:30 100 Oxymask 3 05/31/22 15:29 99 Nasal Cannula 2 05/31/22 15:20 97 Nasal Cannula 2 05/31/22 15:10 92 Nasal Cannula 2 05/31/22 15:00 96 Nasal Cannula 2 05/31/22 14:50 100 Oxymask 2 05/31/22 14:20 100 Oxymask 6 05/31/22 14:14 100 Oxymask 6 05/31/22 08:30 05/31/22 10:51 143/75 H 94 Nasal Cannula 2 05/31/22 08:35 99 Nasal Cannula 1 05/31/22 03:39 148/79 H 96 Nasal Cannula 2 05/31/22 01:05 05/31/22 00:48 Nasal Cannula 2 05/31/22 00:04 164/84 H 97 Nasal Cannula 2 05/30/22 23:30 Nasal Cannula 4 05/30/22 22:30 172/85 H 100 Nasal Cannula 4 05/30/22 21:27 76 L Room Air, Nasal Cannula 0 05/30/22 21:07 05/30/22 20:57 172/99 H 95 Room Air 05/30/22 18:55 96 Room Air Pain Intensity Left Hip: Pain Intensity: 8 Transfer of Care Handoff Completed per policy Notes Mental Status: alert / awake / arousable and participated in evaluation Patient Amnestic to Procedure: Yes Nausea / Vomiting: adequately controlled Pain: adequately controlled Airway Patency, RR, SpO2: stable & adequate BP & HR: stable & adequate Hydration State: stable & adequate Anesthetic Complications: no major complications apparent and Pt Satisfied with anesthetic care
[2022-05-31] MEDS: SODIUM CHLORIDE 0.9% 1000ML 1,000 ML IV SCH (17:16)
[2022-05-31] MEDS ORDERED: PROMETHAZINE HCL 25 MG in SODIUM CHLORIDE 0.9% 50 ML IV STA (18:03)
[2022-05-31] MEDS ORDERED: PROMETHAZINE HCL 12.5 MG in SODIUM CHLORIDE 0.9% 50 ML IV PRN (18:17)
[2022-05-31] MEDS: ceFAZolin 2000MG 2,000 MG/15 ML SYR IV SCH (21:31)
[2022-05-31] MEDS: ATORVASTATIN 40 MG TAB PO SCH (22:48)
[2022-05-31] MEDS: TAMSULOSIN HCL 0.4 MG CAP PO SCH (22:48)
[2022-05-31] MEDS: DOCUSATE SODIUM/SENNA 50/8.6MG TAB PO SCH (22:48)
[2022-05-31] MEDS: HYDROmorphone INJ 0.5 MG/0.5 ML SYR IV PRN (23:48)
[2022-06-01] MEDS: ceFAZolin 2000MG 2,000 MG/15 ML SYR IV SCH (03:11)
[2022-06-01] MEDS: MoRPHine SULFATE 2 MG/ML CARP IV PRN ×2 (03:36→21:07)
[2022-06-01 06:32] LABS: Basophils # (auto) 0.02 K/uL (0-0.2); Basophils % (auto) 0.1 %; Eosinophils # (auto) 0.05 K/uL (0-0.50); Eosinophils % (auto) 0.4 %; Hematocrit (blood only) 43.6 % (42.0-52.0); Hemoglobin 14.1 g/dl (14.0-18.0); Immature Granulocytes # (auto) 0.06 K/uL (0.01-0.20); Immature Granulocytes % (auto) 0.4 %; Lymphocytes # (auto) 0.85 K/uL (1.2-3.4); Lymphocytes % (auto) 6.3 %; Mean Corpuscular Hemoglobin 29.4 pg (25.0-34.0); Mean Corpuscular Hgb Conc 32.3 g/dL (32.0-36.0); Mean Platelet Volume 9.6 fL (9.4-12.4); Monocytes # (auto) 0.92 K/uL (0.11-0.59); Monocytes % (auto) 6.8 %; Neutrophils # (auto) 11.69 K/uL (1.40-6.50); Platelet Count 165 K/uL (130-400); RDW Coefficient of Variation 14.5 % (11.5-14.5); RDW Standard Deviation 48.1 fL (36.4-46.3); Red Blood Count 4.79 M/uL (4.70-6.10); White Blood Count 13.59 K/ul (4.8-10.8)
[2022-06-01 07:37] LABS: Partial Thromboplastin Ratio 1.1; Partial Thromboplastin Time 31.1 Seconds (21.0-31.0)
--- NOTE | 2022-06-01 07:40 | Electrocardiogram Report ---
Test Reason : Blood Pressure : / mmHG Vent. Rate : 114 BPM Atrial Rate : 114 BPM P-R Int : 186 ms QRS Dur : 148 ms QT Int : 352 ms P-R-T Axes : 064 -38 028 degrees QTc Int : 485 ms Sinus tachycardia with occasional Premature ventricular complexes Left axis deviation Right bundle branch block Possible Old Inferior infarct Abnormal ECG When compared with ECG of 30-MAY-2022 20:33, HR has increased 33 bpm Premature ventricular complexes are now Present QRS axis Shifted left Borderline Criteria for Inferior infarct is now Present Confirmed by Eric Jones ([id number]) on 06/01/2022 7:40:06 AM Referred By: REFERRED SELF Confirmed By:Eric Jones
[2022-06-01] MEDS: SODIUM CHLORIDE 0.9% 1000ML 1,000 ML IV SCH (08:07)
--- NOTE | 2022-06-01 08:09 | Progress Notes ---
DATE OF SERVICE: 06/01/2022 SUBJECTIVE: An 81-year-old gentleman with multiple medical comorbidities, now postoperative day 1 fr om a left cemented bipolar hip arthroplasty for fracture. He is doing pretty well this morning. Rep orts some hip soreness, but that is it. No other real complaints. He does have some aphasia, so com munication is a little difficult. OBJECTIVE: VITAL SIGNS: Temperature is 36.8. Vital signs are fairly stable. He is a bit tachycardic at 118. EXTREMITIES: Examination of the left hip and leg reveals the dressing to be clean, dry, and intact. Leg lengths are equal. He can dorsiflex and plantarflex his foot appropriately. He is neurological ly intact. LABORATORY DATA: Hemoglobin 14.1. Hematocrit 43.6. White cell count 13.59. Electrolytes are pendi ng. ASSESSMENT: An 81-year-old gentleman with multiple medical comorbidities, now postoperative day 1 fr om a left cemented bipolar hip arthroplasty for fracture. Orthopedically, he is doing well. His edgar n is controlled. His hip is located. He is neurologically intact/stable. PLAN: 1. DVT prophylaxis including thigh-high TEDs and SCDs and he can start back on his Plavix today 24 h ours postop surgery. He can also start back on his baby aspirin once a day. 2. PT, OT, and weightbear as tolerated. Left total hip protocol. 3. Pain control, doing okay with current pain regimen. 4. Medical management as per the medicine service. 5. Disposition: He would likely need a rehab stay. He will be orthopedically okay to be discharged to rehab any time medically stable. I need to see him back in 2 to 3 weeks out from surgery date. Any orthopedic questions can be directed to me at [phone]. Job ID: [id number]
[2022-06-01] MEDS ORDERED: METOPROLOL TARTRATE 25 MG TAB PO SCH (09:00)
[2022-06-01] MEDS: FLUTICASONE/VILANTEROL 200/25MCG 14 PUFFS/INHALER INH SCH (09:16)
[2022-06-01] MEDS: ASPIRIN 81 MG ECTAB PO SCH (09:16)
[2022-06-01] MEDS: INSULIN ASPART PER UNIT SC SCH ×4 (09:16→20:53)
[2022-06-01] MEDS: CLOPIDOGREL BISULFATE 75 MG TAB PO SCH (09:16)
[2022-06-01] MEDS: NSS + 20MEQ KCL 20 MEQ/1,000 ML BAG IV SCH (09:17)
[2022-06-01 09:57] LABS: Albumin Globulin Ratio 1.2 (0.9-2); Albumin Level 3.9 gm/dl (3.4-5.0); BUN Creatinine Ratio 19.8 (10-20); Bilirubin,Total 0.5 mg/dl (0.2-1.0); Calcium 8.6 mg/dl (8.5-10.1); Est GFR (Non-African American) 77.7 ml/min; Globulin 3.2 gm/dl (2.5-4.0); Magnesium 2.1 mg/dl (1.7-2.4); Potassium 4.2 mmol/L (3.5-5.1); Total Protein 7.1 gm/dl (6.0-8.3)
[2022-06-01] MEDS: HYDROmorphone INJ 0.5 MG/0.5 ML SYR IV PRN (10:56)
[2022-06-01] MEDS ORDERED: METOPROLOL TARTRATE 25 MG TAB PO ONE (16:03)
--- NOTE | 2022-06-01 16:19 | Hospitalist Progress Note ---
Date of Service June 01, 2022 Assessment & Plan (1) Closed fracture of left hip: Plan: Presents after a mechanical fall, has focal pain, OR on 05/31/[address] Foster performing a left hip hemiarthroplasty Postoperative pain control is good Patient denies significant anemia (2) History of cardiac arrest: Plan: Cardiac arrest status post bilateral CEA surgery in 2016/hypertension- echocardiogram is without changes intact EF no regional wall motion abnormalities no significant valvular heart disease Hold aspirin, clopidogrel Patient with significant sinus tachycardia postoperatively. Losartan is held amlodipine will be held in the face of increasing metoprolol dosing Metoprolol utilized to control rate (3) COPD (chronic obstructive pulmonary disease): Plan: Chronic and stable continue Symbicort (4) History of CVA (cerebrovascular accident): Plan: Previous on 2 antiplatelet therapy these will be held. Risk reduction hypertension control and dyslipidemic treatment (5) Urinary tract infection: Plan: History of UTI/balanitis-much improved from previous description Patient was admitted to the emergency department at [facility] for 3 days in February 2022. His reports that he since developed a rash on his penis, and she reports combination of 2 creams on this on a daily basis patient says this is in good control and almost resolved (6) BPH w urinary obs/LUTS: Admission and Anticipated Discharge Date Admission Date: May 30, 2022 Subjective Patient was seen postoperatively the last evening and again today he has sinus tachycardia he is pleasantly confused his confusion is more so than initially thought but his feels this is about his usual state. His is at the bedside and updated. EKG was checked to confirm sinus tachycardia. He does not have significant postoperative anemia. Physical Exam Physical Exam: Cardiac exam is tachycardic but regular lungs are clear and unlabored abdomen NABS soft his extremity has good distal capillary refill on the left with good pulses Results & Data Results & Data ([facility]) Vital Signs (Past 12 Hours) Vital Signs Temp Pulse Resp BP Pulse Ox O2 Del Method O2 Flow Rate 06/01/22 12:42 97.7 F 141 H 19 138/78 93 Room Air 06/01/22 08:41 98.6 F 110 H 18 148/86 H 96 Nasal Cannula 2 Laboratory Results Reviewed CBC Reviewed PRP Reviewed magnesium Interpreted EKG at the bedside showing sinus tachycardia PG Care Time/CCT Total # of Minutes Spent Total Time Spent with Patient: Total time spent is greater than 50% in coordination of care (as documented) at patient's floor/unit and/or counseling patient: Coding Level of Care Code 21883 SUB INP/OBS CARE 2/35MIN Diagnoses Closed fracture of left hip S72.002A History of cardiac arrest Z86.74 COPD (chronic obstructive pulmonary disease) J44.9 History of CVA (cerebrovascular accident) Z86.73 Urinary tract infection N39.0 BPH w urinary obs/LUTS N40.1; N13.8
[2022-06-01] MEDS: METOPROLOL TARTRATE 25 MG TAB PO SCH (20:57)
[2022-06-01] MEDS: ATORVASTATIN 40 MG TAB PO SCH (20:57)
[2022-06-01] MEDS: TAMSULOSIN HCL 0.4 MG CAP PO SCH (20:58)
[2022-06-01] MEDS: DOCUSATE SODIUM/SENNA 50/8.6MG TAB PO SCH (20:58)
[2022-06-02] MEDS: HYDROmorphone INJ 0.5 MG/0.5 ML SYR IV PRN (05:56)
[2022-06-02 07:03] LABS: Albumin Globulin Ratio 1.1 (0.9-2); Albumin Level 3.4 gm/dl (3.4-5.0); BUN Creatinine Ratio 19.8 (10-20); Bilirubin,Total 0.7 mg/dl (0.2-1.0); Calcium 8.6 mg/dl (8.5-10.1); Est GFR (African American) 95.3 ml/min; Est GFR (Non-African American) 82.2 ml/min; Globulin 3.1 gm/dl (2.5-4.0); Magnesium 2.1 mg/dl (1.7-2.4); Potassium 3.8 mmol/L (3.5-5.1); Total Protein 6.5 gm/dl (6.0-8.3)
[2022-06-02 07:15] LABS: Partial Thromboplastin Time 28.2 Seconds (21.0-31.0)
[2022-06-02 08:01] LABS: Basophils # (auto) 0.02 K/uL (0-0.2); Basophils % (auto) 0.2 %; Eosinophils # (auto) 0.09 K/uL (0-0.50); Eosinophils % (auto) 0.8 %; Hematocrit (blood only) 35.2 % (42.0-52.0); Hemoglobin 11.5 g/dl (14.0-18.0); Immature Granulocytes # (auto) 0.06 K/uL (0.01-0.20); Immature Granulocytes % (auto) 0.5 %; Lymphocytes # (auto) 1.13 K/uL (1.2-3.4); Lymphocytes % (auto) 9.7 %; Mean Corpuscular Hemoglobin 29.4 pg (25.0-34.0); Mean Corpuscular Hgb Conc 32.7 g/dL (32.0-36.0); Mean Platelet Volume 10.2 fL (9.4-12.4); Monocytes # (auto) 0.94 K/uL (0.11-0.59); Monocytes % (auto) 8.1 %; Neutrophils % (auto) 80.7 %; Platelet Count 149 K/uL (130-400); RDW Coefficient of Variation 14.7 % (11.5-14.5); RDW Standard Deviation 48.9 fL (36.4-46.3); Red Blood Count 3.91 M/uL (4.70-6.10); White Blood Count 11.64 K/ul (4.8-10.8)
[2022-06-02] MEDS: INSULIN ASPART PER UNIT SC SCH ×4 (08:17→20:55)
[2022-06-02] MEDS: FLUTICASONE/VILANTEROL 200/25MCG 14 PUFFS/INHALER INH SCH (08:18)
[2022-06-02] MEDS: CLOPIDOGREL BISULFATE 75 MG TAB PO SCH (08:19)
[2022-06-02] MEDS: METOPROLOL TARTRATE 25 MG TAB PO SCH ×2 (08:19→20:14)
[2022-06-02] MEDS: ASPIRIN 81 MG ECTAB PO SCH (08:19)
--- NOTE | 2022-06-02 08:22 | Progress Notes ---
DATE OF SERVICE: 06/02/2022 SUBJECTIVE: An 81-year-old gentleman with multiple medical comorbidities, postoperative day 2 from a left cemented bipolar hip arthroplasty. He is doing well. No real complaints today. Reports a lit tle bit of hip soreness and that is it. No new complaints. OBJECTIVE: VITAL SIGNS: Temperature 37.0. Vital signs are stable. PHYSICAL EXAMINATION: GENERAL: Reveals a pleasant, elderly male. He is sitting up in bed and eating breakfast. Looks com fortable. EXTREMITIES: Examination of the left hip reveals leg lengths to be equal. Dressing is clean, dry an d intact. He can dorsiflex and plantarflex his foot appropriately. He is neurologically intact. LABORATORY DATA: Hemoglobin is 11.5. Hematocrit is 35.2. Electrolytes are stable. ASSESSMENT: An 81-year-old gentleman, postoperative day 2 from a left cemented bipolar hip arthropla sty, doing reasonably well. Hip is located. He is neurologically intact. Pain seems to be controll ed. Hemoglobin has dropped a bit, but not anything too unusual. PLAN: 1. DVT prophylaxis including thigh-high TEDs, SCDs, and he can go back on his Plavix and aspirin. 2. PT/OT, weightbear as tolerated. Left total hip protocol. 3. Pain control, doing okay with current pain regimen. 4. Medical management as per the medicine service. 5. Disposition: He is orthopedically okay for discharge any time medically stable. He can weight b ear as tolerated. Needs to obey hip precautions. I need to see him back in 2-3 weeks out from surge ry date. Any orthopedic questions can be directed to me at . Job ID: [id number]
[2022-06-02 08:27] LABS: Thyroid Stimulating Hormone 1.607 uIu/ml (0.300-4.500)
[2022-06-02 08:29] LABS: T4 Free Thyroxine 1.06 ng/dl (0.61-1.60)
--- NOTE | 2022-06-02 14:03 | Hospitalist Progress Note ---
Date of Service June 02, 2022 Assessment & Plan (1) Closed fracture of left hip: Plan: Presents after a mechanical fall, has focal pain, OR on 05/31/[address] Foster performing a left hip hemiarthroplasty Postoperative pain control is good Patient does not have significant postop anemia but does have mild acute blood loss anemia with a hemoglobin of 11.5 seen and have a suction because of tachycardia. Patient has had sinus tachycardia postoperatively initially felt to be secondary to the events that occurred with anesthesia etc. But with persistent tachycardia and escalation of beta-stefano will perform CT angiography to rule out pulmonary embolism as cause patient keshav on dual antiplatelet therapy at this point time. 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 Losartan is held amlodipine will be held in the face of increasing metoprolol dosing Metoprolol utilized to control rate (3) COPD (chronic obstructive pulmonary disease): Plan: Chronic and stable continue Symbicort (4) History of CVA (cerebrovascular accident): Plan: Previous on 2 antiplatelet therapy these will be held. Risk reduction hypertension control and dyslipidemic treatment (5) Urinary tract infection: Plan: History of UTI/balanitis-much improved from previous description Patient was admitted to the emergency department at [facility] for 3 days in February 2022. His reports that he since developed a rash on his penis, and she reports combination of 2 creams on this on a daily basis patient says this is in good control and almost resolved (6) BPH w urinary obs/LUTS: Plan: Patient is currently with some minor urinary retention but no significant symptoms Admission and Anticipated Discharge Date Admission Date: May 30, 2022 Subjective Patient is pleasantly confused his confusion is more so than initially thought but his feels this is about his usual state. Tachycardia has improved with beta-blockers although CTA will be performed to rule out pulm embolism as the nidus for his tachycardia. EKG was checked to confirm sinus tachycardia. He does not have significant postoperative anemia. Physical Exam Physical Exam: Cardiac exam lessening cardiac response with beta-stefano heart rates in the 90s to 100 range remains sinus rhythm on monitor I did review his monitor strips with the monitor techs on 06/02/2022 lungs are clear and unlabored abdomen NABS soft his extremity has good distal capillary refill on the left with good pulses Results & Data Results & Data ([facility]) Vital Signs (Past 12 Hours) Vital Signs Temp Pulse Pulse Pulse Resp BP Pulse Ox 06/02/22 11:48 97.7 F 91 H 20 129/77 95 06/02/22 07:53 98.6 F 98 H 20 124/74 92 06/02/22 07:45 06/02/22 06:00 125 H 06/02/22 03:21 99.7 F H 107 H 18 102/68 91 O2 Del Method 06/02/22 11:48 Room Air 06/02/22 07:53 Room Air 06/02/22 07:45 Room Air 06/02/22 06:00 06/02/22 03:21 Room Air Laboratory Results Reviewed CBC Reviewed chemistry Reviewed nutritional parameters albumin 14 Reviewed thyroid panel normal PG Care Time/CCT Total # of Minutes Spent Total Time Spent with Patient: Total time spent is greater than 50% in coordination of care (as documented) at patient's floor/unit and/or counseling patient: Coding Level of Care Code 61467 SUB INP/OBS CARE 3/50MIN Diagnoses Closed fracture of left hip S72.002A History of cardiac arrest Z86.74 COPD (chronic obstructive pulmonary disease) J44.9 History of CVA (cerebrovascular accident) Z86.73 Urinary tract infection N39.0 BPH w urinary obs/LUTS N40.1; N13.8
[2022-06-02] MEDS ORDERED: OPTIRAY 320 500ml IV ONE (14:31)
--- NOTE | 2022-06-02 14:34 | Electrocardiogram Report ---
Test Reason : Blood Pressure : / mmHG Vent. Rate : 118 BPM Atrial Rate : 118 BPM P-R Int : 190 ms QRS Dur : 128 ms QT Int : 354 ms P-R-T Axes : 080 007 022 degrees QTc Int : 496 ms Poor data quality, interpretation may be adversely affected Sinus tachycardia Right bundle branch block Old Inferior infarct (cited on or before 31-MAY-2022) Abnormal ECG When compared with ECG of 31-MAY-2022 17:58, Premature ventricular complexes are no longer Present Confirmed by Eric Jones ([id number]) on 06/02/2022 2:33:35 PM Referred By: REFERRED SELF Confirmed By:Eric Jones
--- NOTE | 2022-06-02 17:09 | CT Scan Report ---
CT angio chest PE protocol CT DOSE: 762.10 mGy.cm HISTORY: 81 years-old Male with PE, tachycardia post op unexplained. Acute shortness of breath with tachycardia TECHNIQUE: Multiple CTA images of the chest were obtained after the intravenous administration of 109 ml Optiray. Coronal and sagittal MIPS were obtained from the axial data set and were submitted for review. All measurements were obtained according to NASCET criteria. A dose lowering technique was u tilized adhering to the principles of ALARA. COMPARISON: None. FINDINGS: CTA: Mild cardiomegaly without pericardial effusion. Extensive coronary artery calcifications. Atheroscler osis of the aorta without aneurysm. No pulmonary emboli identified. CT CHEST: No thyroid nodule. No lymphadenopathy. No pneumothorax, pleural effusion, airspace consolidation or o vert pulmonary edema. Mild tracheobronchial secretions with bronchial wall thickening. There is decre ased transverse dimension of the trachea. Tiny hiatal hernia. No acute process of the imaged upper abdomen. Unremarkable soft tissues. Battery pack within the left chest wall. Degenerative changes of the shoulders and spine. No acute fracture i dentified. IMPRESSION: 1. No pulmonary emboli identified. 2. Mild bronchial wall thickening suggestive of bronchitis or reactive airway disease with mild trach eobronchial secretions. 3. Hepatic steatosis. ACT 112: Negative or not required by law. The above report was generated using voice recognition software. It may contain grammatical, syntax o r spelling errors. Electronically signed by: Eliud Atkinson M.D. 06/02/2022 5:07 PM
[2022-06-02] MEDS: POLYETHYLENE (MIRALAX) 17 GM PACK PO SCH ×2 (17:33→20:00)
[2022-06-02] MEDS: TAMSULOSIN HCL 0.4 MG CAP PO SCH (20:14)
[2022-06-02] MEDS: ATORVASTATIN 40 MG TAB PO SCH (20:15)
[2022-06-02] MEDS: DOCUSATE SODIUM/SENNA 50/8.6MG TAB PO SCH (20:15)
[2022-06-03] MEDS: POLYETHYLENE (MIRALAX) 17 GM PACK PO SCH ×3 (06:19→17:26)
[2022-06-03] MEDS: FLUTICASONE/VILANTEROL 200/25MCG 14 PUFFS/INHALER INH SCH (08:09)
[2022-06-03] MEDS: ASPIRIN 81 MG ECTAB PO SCH (08:10)
[2022-06-03] MEDS: CLOPIDOGREL BISULFATE 75 MG TAB PO SCH (08:10)
[2022-06-03] MEDS: METOPROLOL TARTRATE 25 MG TAB PO SCH ×2 (08:10→20:52)
[2022-06-03] MEDS: INSULIN ASPART PER UNIT SC SCH ×4 (08:14→20:52)
--- NOTE | 2022-06-03 08:26 | Progress Notes ---
SUBJECTIVE: An 81-year-old gentleman, postoperative day #3 from a left cemented bipolar hip arthropl asty for fracture. He is doing okay. They said he has been nauseated overnight. No other complaint s. Really not much in the way of hip pain. OBJECTIVE: VITAL SIGNS: Temperature is 37.2. Vital signs stable. A little tachycardic. GENERAL: Shows a pleasant, elderly male. He is sitting up in bed this morning and looks pretty comf ortable. EXTREMITIES: Examination of the left hip reveals the dressing to be clean, dry and intact. Thigh is soft and supple. He can dorsiflex and plantarflex his foot appropriately. He appears neurologicall y intact. ASSESSMENT: An 81-year-old gentleman postoperative day #3 from a left cemented bipolar hip arthropla sty for fracture. Orthopedically he is doing fine. PLAN: 1. DVT prophylaxis including thigh-high TEDs, SCDs and back on his aspirin and Plavix. 2. PT/OT. He can weightbear as tolerated. Does need to obey hip precautions. 3. Pain control, doing okay with current pain regimen. This certainly could be contributing some to any nausea. 4. Medical management as per the medicine service. 5. Disposition: He is orthopedically okay for discharge any time medically stable. I need to see h im back in 2-3 weeks out from surgery date. Any orthopedic questions can be directed to me at [phone] . Job ID: [id number]
--- NOTE | 2022-06-03 16:38 | Hospitalist Progress Note ---
Date of Service June 03, 2022 Assessment & Plan (1) Closed fracture of left hip: Plan: Presents after a mechanical fall, has focal pain, OR on 05/31/[address] Foster performing a left hip hemiarthroplasty Postoperative pain control is good Patient does not have significant postop anemia but does have mild acute blood loss anemia with a hemoglobin of 11.5 could be a part of his tachycardia CT angiography DID rule out pulmonary embolism as cause patient keshav on dual antiplatelet therapy at this point time. 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 Losartan is held amlodipine will be held in the face of increasing metoprolol dosing Metoprolol utilized to control rate (3) COPD (chronic obstructive pulmonary disease): Plan: Chronic and stable continue Symbicort (4) History of CVA (cerebrovascular accident): Plan: Previous on 2 antiplatelet therapy these will be held. Risk reduction hypertension control and dyslipidemic treatment (5) Urinary tract infection: Plan: History of UTI/balanitis-much improved from previous description Patient was admitted to the emergency department at [facility] for 3 days in February 2022. His reports that he since developed a rash on his penis, and she reports combination of 2 creams on this on a daily basis patient says this is in good control and almost resolved (6) BPH w urinary obs/LUTS: Plan: Patient is currently with some minor urinary retention but no significant symptoms Admission and Anticipated Discharge Date Admission Date: May 30, 2022 Subjective Patient is pleasantly confused his confusion is more so than initially thought but his feels this is about his usual state. Tachycardia has improved with beta-blockers, CTA did rule out pulm embolism as the nidus for his tachycardia. EKG was checked to confirm sinus tachycardia. He does not have significant p ostoperative anemia. Patient intermittent postoperative vomiting he says is related to foodstuffs. Pepcid was initiated on 06/03/2022 Physical Exam Physical Exam: Cardiac exam lessening cardiac response with beta-stefano heart rates in the 90s to 100 range remains sinus rhythm on monitor I did review his monitor strips this looks to be sinus tachycardia lungs are clear and unlabored abdomen NABS soft his extremity has good distal capillary refill on the left with good pulses Results & Data Results & Data ([facility]) Vital Signs (Past 12 Hours) Vital Signs Temp Pulse Pulse Resp BP Pulse Ox O2 Del Method 06/03/22 14:10 100 H 06/03/22 15:00 98.8 F 96 H 18 154/91 H 95 Room Air 06/03/22 11:00 97.2 F L 100 H 18 147/72 H 95 Room Air 06/03/22 07:44 Room Air 06/03/22 07:00 99.0 F 109 H 18 113/77 93 Room Air 06/03/22 06:06 107 H Laboratory Results Reviewed [id number] glucoses PG Care Time/CCT Total # of Minutes Spent Total Time Spent with Patient: Total time spent is greater than 50% in coordination of care (as documented) at patient's floor/unit and/or counseling patient: Coding Level of Care Code 03879 SUB INP/OBS CARE 2/35MIN Diagnoses Closed fracture of left hip S72.002A History of cardiac arrest Z86.74 COPD (chronic obstructive pulmonary disease) J44.9 History of CVA (cerebrovascular accident) Z86.73 Urinary tract infection N39.0 BPH w urinary obs/LUTS N40.1; N13.8
[2022-06-03] MEDS: ATORVASTATIN 40 MG TAB PO SCH (20:52)
[2022-06-03] MEDS: TAMSULOSIN HCL 0.4 MG CAP PO SCH (20:53)
[2022-06-03] MEDS: DOCUSATE SODIUM/SENNA 50/8.6MG TAB PO SCH (20:53)
[2022-06-03] MEDS: FAMOTIDINE 20 MG TAB PO SCH (20:57)
[2022-06-04] MEDS: POLYETHYLENE (MIRALAX) 17 GM PACK PO SCH ×3 (00:03→12:15)
[2022-06-04] MEDS: CLOPIDOGREL BISULFATE 75 MG TAB PO SCH (08:14)
[2022-06-04] MEDS: ASPIRIN 81 MG ECTAB PO SCH (08:14)
[2022-06-04] MEDS: FAMOTIDINE 20 MG TAB PO SCH (08:14)
[2022-06-04] MEDS: FLUTICASONE/VILANTEROL 200/25MCG 14 PUFFS/INHALER INH SCH (08:14)
[2022-06-04] MEDS: METOPROLOL TARTRATE 25 MG TAB PO SCH (08:14)
[2022-06-04] MEDS: INSULIN ASPART PER UNIT SC SCH ×2 (08:18→12:14)
--- NOTE | 2022-06-04 15:18 | Discharge Summary ---
Date of Service June 04, 2022 Admission HPI Per Admitting Provider The patient is a 81-year-old male with a past medical history including CVA x2, cardiac arrest post bilateral CEA in 2016, hypertension, hyperlipidemia, COPD, BPH with LUTS, urinary tract infection, balanitis and anal stricture. 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 Emergency department work-up included x-ray of pelvis and hips, which showed a closed left hip fracture. Patient developed a pulse ox of 79% on room air after receiving 4 mg of morphine IV, and improved oxygenation on 2 L nasal cannula to 94%. Significant laboratories: WBC 12.91, hemoglobin 15.3, hematocrit 46.7, glucose 154. Patient was COVID-19 negative Principal Diagnosis left hip fracture Discharge Exam this pt is pleasantly confused, left hip pain, regular rhythm, lungs are clear Discharge Data Allergies Allergy/AdvReac Type Severity Reaction Status Date / Time No Known Allergies Allergy Unverified 05/30/22 20:29 Consultations 05/30/22 21:48 ED Decision to Admit Stat 05/30/22 23:09 Consult Orthopedic Surgery Routine Procedures Performed Operation Date: 05/31/22 08:00 Actual Procedures p Left Hip Hemiarthroplasty(Left) - Richard Foster MD Ordered Studies 06/02/22 14:00 CT angio chest PE protocol Routine Hospital Course (1) Closed fracture of left hip: Presents after a mechanical fall, has focal pain, OR on 05/31/[address] Foster performing a left hip hemiarthroplasty Postoperative pain control is good Patient does not have significant postop anemia but does have mild acute blood loss anemia with a hemoglobin of 11.5 could be a part of his tachycardia CT angiography DID rule out pulmonary embolism as cause patient keshav on dual antiplatelet therapy at this point time. Thyroid profile was checked and found to be without abnormality (2) History of cardiac arrest: history of Cardiac arrest status post bilateral CEA surgery in 2016/hypertension- echocardiogram is without changes intact EF no regional wall motion abnormalities no significant valvular heart disease Orthopedics has resumed aspirin, clopidogrel Patient with significant sinus tachycardia postoperatively. Losartan is held amlodipine will be held in the face of increasing metoprolol dosing Metoprolol utilized to control rate (3) COPD (chronic obstructive pulmonary disease): Chronic and stable continue Symbicort (4) History of CVA (cerebrovascular accident): Previous on 2 antiplatelet therapy these will be held. Risk reduction hypertension control and dyslipidemic treatment (5) Urinary tract infection: History of UTI/balanitis-resolved on inspection (6) BPH w urinary obs/LUTS: Patient is currently with some minor urinary retention but no significant symptoms Total Time Total Time Spent Total Time Spent (In Minutes): It required greater than 30 minutes to prepare this patient for discharge Discharge Plan Discharge Items Patient Disposition: Transfer Inpatient Rehab Fac Reason For Visit: CLOSED LEFT HIP FRACTURE, HYPOXIA Discharge Diagnosis: Left Hip Arthroplasty for fracture acute blood loss anemia dementia Activity: Per Instructions section Activity Comment: Follow/Obey hip precautions at all times. Weightbearing: Full weightbearing Weightbearing Comment: Weightbear as tolerated obeying hip precautions at all times. Non-emergency contact: Primary Care Provider and Surgeon Call non-emergency contact if: your symptoms worsen Follow-up/Referrals: Richard Foster MD [Physician] - (Orthopedic follow-up 2-3 weeks from surgery date.) Heath Delgadillo DO [Primary Care Provider] - Diet: Regular Addtl Attending Provider Instructions: ACTIVITY RECOMMENDATIONS: Physical Therapy: * Aggressive physical therapy is not usually needed. You will learn to take care of yourself safely and walk. * Follow the "Hip Precautions Instructions." * In some cases, the licensed social worker at the hospital will arrange to have a therapist come to your house for the first couple of weeks to help you learn these skills. * You need to practice on your own or with the help of a family member as needed. * When you learn these skills, most of the therapy can be done on your own. Home Exercise: * You were shown a series of exercises in the hospital. Do these exercises three to four times each day including the exercises you were shown in physical therapy. Walking: * Get up and walk several times each day. For the first four weeks, try not to stand or walk for more than one hour at a time. If you do stand or walk for more than one hour, you will not hurt anything, but your leg will likely swell. * As you feel comfortable, you may change from the walker or crutches to a cane and then to independent walking. MEDICATIONS: New Medicine: * You will likely be taking one or more of these medicines: 1. Tramadol - Take, as directed, when you need it, every six hours to control your pain. 2. Aspirin and Plavix - Thins your blood to lessen the chance of forming a blood clot. * The most common side effects of pain medicine and iron are nausea and constipation. If nausea or constipation is too much of a problem or if you have any questions about your new medicines or doses, call [facility] at [phone]. We will try to help you manage these issues. "VERY IMPORTANT TO READ AND REVIEW" Pain: * The immediate post-operative period after hip replacement surgery is often quite painful. * You are given a prescription for pain medicine. You should take it, as directed, when you need it, especially before physical therapy and before going to bed. Pain that interferes with sleep is very common and can last several months. * You will likely need pain medicine for the first two to four weeks. It will not stop all of the pain. The pain will lessen and as you feel better, you may change to milder pain medicine such as Tylenol. * The most common side effects of pain medicine are nausea and constipation, so don't take more than you need. SPECIAL CARE INSTRUCTIONS: TEDs/Elastic Stockings: * The white elastic stockings help limit swelling and prevent blood clots from forming in your legs. The more you wear them, the more they work. * Wear them for six weeks. Incision Site Care: * Remove dressing postoperative day 2 and then shower. Keep direct shower pressure off the incision site. * After showering, cover altagracia with dry gauze and change daily or more frequently if the dressing is getting saturated with drainage. * May completely stop using bandage if wound is dry and no drainage * Altagracia are removed between 2 and 3 weeks post-op. If your follow-up appointment is made before 2 weeks, please have your appointment re- scheduled. It is too early to remove the altagracia. Prevention of Infection: * Take antibiotics one hour before any dental cleaning, dental work, urological procedure, gastrointestinal procedure or any invasive surgery in order to prevent your new joint from getting infected. * You may get the antibiotics from the doctor performing the procedure or you may call our office at before and we will call in a prescription to the pharmacy of your choice. Things to Watch For: * Drainage from the incision site that occurs more than one week after your surgery. * Severely increased leg pain or swelling. * Increased redness at the incision site. * Fever above 102 degrees Fahrenheit. * Unusual chest pain or shortness of breath. * Unusual pain or burning with urination. Call [facility] at with any of the above problems or if you have any questions about your medicines or recovery. FOLLOW UP VISIT: Make an appointment to see your doctor for approximately two weeks after surgery for a progress check and staple removal by calling the office at . Addtl Social Media Analyst Provider Instructions: Patient's dementia is slightly worsened than baseline this may be situational. Urine culture was sent prior to discharge. Pending Studies at Discharge: Yes Studies:: Urine culture Stand-Alone Forms: My [facility] Skilled Items Patient informed of condition?: Yes DNR: No Discharge Level of Care: Acute rehab Communicable Disease: No Discharge Prognosis: Stable Lines: None Urinary Catheter: No Medications and DC Order Prescriptions: New metoprolol tartrate 25 mg Tablet 25 mg PO BID Qty: 60 0RF Continued atorvastatin [Lipitor] 80 mg Tablet 80 mg PO HS acetaminophen 325 mg Tablet 650 mg PO QID PRN (Reason: Pain) clopidogrel 75 mg Tablet 75 mg PO QAM amlodipine 5 mg Tablet 5 mg PO QAM aspirin [Aspirin Low-Strength] 81 mg Tablet,Delayed Release (Dr/Ec) 81 mg PO QAM tamsulosin [Flomax] 0.4 mg Capsule 0.4 mg PO HS losartan 25 mg Tablet 12.5 mg PO QAM budesonide-formoterol [Symbicort] 160-4.5 mcg/actuation Hfa Aerosol Inhaler 2 puff INHALATION BID Discharge Orders: Discharge Order (Routine); Ordered 06/04/22 Ordered By: Anmol Arias/Other Patient Handouts: What Is Aphasia?, Understanding Hip Fractures, Stroke Prevention For Caregiver Admission Data Admit Date/Time: 05/30/22 22:44 Attending Provider: Anmol Yuen Admit Provider: Segun Torres Primary Care Provider: Heath Delgadillo Other Providers: Segun Torres ; Richard Foster Other Interventions: Discharge Summary Assessment (RN) Last Done: 06/04/22 13:17 Coding Level of Care Code 63186 INP/OBS DISCH >30 MIN Diagnoses Closed fracture of left hip S72.002A History of cardiac arrest Z86.74 COPD (chronic obstructive pulmonary disease) J44.9 History of CVA (cerebrovascular accident) Z86.73 Urinary tract infection N39.0 BPH w urinary obs/LUTS N40.1; N13.8
== END 2022-06-04 16:10 | DRG 522 ==
LOC: ED 18:50 → SUATTDRO 22:44 → 2N 22:44